=== PATIENT | female | born 1985 | race Caucasian/White ===

== ENCOUNTER 2016-11-26 15:59 | Emergency (ER) | payer OTHER ==
[~2016-11-26] VITALS: Ht 172.7 cm; Wt 113.4 kg
[~2016-11-26 15:59] MED LIST: A/B OTIC 54 MG/15 ML OT; ALPRAZOLAM1 M2 PO; KLONOPIN0.5 MG PO; LEVOTHYROXINE100 MC1 PO; METFORMIN HCL500 M4 PO; OMNICEF300 MG PO; PAMPRIN MAX PA1 EACH PO; PERCOCET 325 MG1 TA2 PO; VENLAFAXINE HC150 MG PO
[2016-11-26 16:26] VITALS: BP 137/86
--- NOTE | 2016-11-26 18:37 | ED PSYCHIATRIC COMPLAINT ---
History of Present Illness General Chief Complaint: General Adult Stated Complaint: OFF MEDS SINCE SAT, ANXIETY, FEELING DISORIENTED Source: patient, family, old records Exam Limitations: no limitations Vital Signs & Intake/Output Vital Signs & Intake/Output Vital Signs Date Time Temp Pulse Resp B/P Pulse O2 O2 Flow FiO2 Ox Delivery Rate 11/26 1626 97.7 81 18 137/86 99 Room Air Allergies Coded Allergies: codeine (Intermediate, RASH 03/08/16) Uncoded Allergies: SEASONAL (03/08/16) Reconcile Medications Alprazolam 1 MG TABLET 1 TAB PO DAILY PRN ANXIETY (Reported) Alprazolam (Xanax) 1 MG TABLET 1 TAB PO BID PRN ANXIETY Aspirin/Acetaminophen/Caffeine (Pamprin Max Pain Relief Caplet) 1 EACH TABLET 2 TAB PO PRN PAIN (Reported) Levothyroxine Sodium 200 MCG TABLET 1 TAB PO DAILY THYROID (Reported) Metformin HCl (Metformin HCl ER) 500 MG TAB.ER.24H 1 TAB PO DAILY PCOS ( Reported) Venlafaxine HCl (Venlafaxine HCl ER) 150 MG CAP.ER.24H 1 CAP PO DAILY MENTAL HEALTH (Reported) Triage Note: PRESENTS TO ED FOR EVALUATION OF INCREASE ANXIETY X 10 DAYS. REPORTS SUDDEN EPISODES OF CRYING AND UNABLE TO SLEEP. ALSO REPORTS DIZZINESS AND SHE WAS REFERED TO THE ED BY HER THERAPIST. Triage Nurses Notes Reviewed? yes Onset: Gradual Duration: week(s): (1), constant Timing: recent history Severity: mild, moderate Severity Numbers: 7 Associated Symptoms: anxiety, insomnia : No Patient currently breastfeeds: No HPI: 31-year-old female with history of anxiety for which she takes Xanax as needed , hypothyroid presents complaining of briskly worsening anxiety and insomnia for the past 1 week. The patient can't get in to see her psychiatrist until December and attempted calling her primary care physician over the weekend and today for refill of her Xanax without getting a call back. She reports to being under increased stress for the past several weeks getting progressively worse. 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 Her fianc is at bedside corroborating story. She denies any thoughts of wanting to harm herself or others she is never been hospitalized in inpatient setting due to anxiety depression. The patient is declining wishing to speak with crisis when offered today. She denies any other complaints. Her last dose of Xanax was 3 days ago. (RENAY KIDD) Past History Travel History Traveled to [place] past 21 day No Medical History Any Pertinent Medical History? see below for history Psychiatric: anxiety, depression Cancer(s): thyroid cancer Surgical History Surgical History: non-contributory Psychosocial History What is your primary language Cape Verdean Tobacco Use: Never used Family History Hx Contributory? No (RENAY KIDD) Review of Systems Review of Systems Constitutional: Reports: see HPI. All Other Systems: Reviewed and Negative Comments Review of systems: See HPI, All other systems negative. Constitutional, no chills no fever, no malaise HEENT: no sore throat no congestion, no ear pain Cardiovascular: No chest pain , no palpitation Skin, no rashes, no change in skin Respiratory: No dyspnea no cough no sputum GI: No nausea no vomiting, no diarrhea : No dysuria Muscle skeletal: No joint pain, no joint swelling, no back pain, no neck pain, Neurologic: No numbness , no headache Psych: anxiety Heme/endocrine: No bruising no bleeding no polyuria Immunology: No lymphadenopathy (RENAY KIDD) Physical Exam Physical Exam General Appearance: well developed/nourished, no apparent distress, alert, awake Neurological/Psychiatric: no motor/sensory deficits, awake, alert, normal mood/ affect, strategy intern II-XII nml as tested Comments: Well-developed well-nourished person in no acute distress HEENT: Normal EENT exam; PERRL, EOMI, no nystagmus. HEAD is atraumatic. moist mucous membranes. Neck: Supple,, normal range of motion Back: Nontender. Full range of motion Cardiovascular: Regular rate and rhythms no murmurs rubs Respiratory: . No respiratory distress. Patient speaking in full complete sentences. Breath sounds clear to auscultation bilaterally: NO W/R/R Abdomen: Soft, nontender Extremity: No edema, full range of motion of extremities Neuro: Alert oriented x3, motor sensory normal. There were no obvious focal neurologic abnormalities. Skin: No appreciable rash on exposed skin, skin is warm and dry. Psych: Mood and affect is normal, memory and judgment is normal. SAD PERSONS Done? patient not suicidal (RENAY KIDD) Progress Differential Diagnosis: anxiety, depression Plan of Care: Patient was explained the possibility and my recommendation was speaking with crisis which she is declining she is not homicidal she has a good support system at home lives with her fianc advised that she call her psychiatrist again tomorrow to see if she can be seen sooner as well as her primary care physician. Prescription present next was provided advised return anytime sooner for symptoms worsen despite taking these medications or she has any other concerns answered all of her questions they feel comfortable plan (RENAY KIDD) Departure Departure Time of Disposition: 1835 Disposition: HOME OR SELF CARE Condition: Stable Clinical Impression Primary Impression: Anxiety Referrals: BRYCE GASTELUM DO Additional Instructions: FOLLOW UP WITH PRIMARY CARE PHYSICIAN DR GASTELUM WELL YOUR THERAPIST THIS WEEK TO SEE IF YOU CAN BE SEEN SOONER. XANAX DIRECTED, DIRECTED, RETURN AT ANYTIME SOONER IF YOU HAVE WORSENIG OF YOUR SYMPTOMS DESPITE MEDICATION OR HAVE ANY OTHER CONCERNS. YOUR PRESCRIPTION WAS SENT TO [facility] Departure Forms: Customer Survey General Discharge Information Prescriptions: Current Visit Scripts Alprazolam (Xanax) 1 TAB PO BID PRN ANXIETY #10 TAB (RENAY KIDD) PA/UNDERWATER HUNTER TRAPPER Co-Sign Statement Statement: ED Attending supervision documentation- [] I saw and evaluated the patient. I have also reviewed all the pertinent lab results and diagnostic results. I agree with the findings and the plan of care as documented in the PA's/UNDERWATER HUNTER TRAPPER's documentation. [X] I have reviewed the ED Record and agree with the PA's/UNDERWATER HUNTER TRAPPER's documentation. [] Additions or exceptions (if any) to the PAs/UNDERWATER HUNTER TRAPPER's note and plan are summarized below: [] (SHIRA DAVIS,GEORGE)
[2016-11-26] MEDS ORDERED: XANAX1 M1 PO (18:38)
== END 2016-11-26 18:44 ==
LOC: ERH 15:59
DX: F41.9 Anxiety disorder, unspecified (principal)

== ENCOUNTER 2017-03-11 10:55 | Emergency (ER) | payer OTHER ==
[~2017-03-11] VITALS: Ht 172.7 cm; Wt 108.9 kg
[~2017-03-11 10:55] MED LIST changes: +XANAX1 M1 PO
--- NOTE | 2017-03-11 11:28 | ED INFLUENZA/URI COMPLAINT ---
History of Present Illness General Chief Complaint: Dyspnea (COPD, CHF, Other) Stated Complaint: DIFFICULTY BREATHING Source: patient, old records Exam Limitations: no limitations Vital Signs & Intake/Output Vital Signs & Intake/Output Vital Signs Date Time Temp Pulse Resp B/P B/P Pulse O2 O2 Flow FiO2 Mean Ox Delivery Rate 03/11 1212 97.8 83 18 125/63 100 Room Air 03/11 1156 Room Air 03/11 1103 97.8 65 18 116/78 98 Room Air Allergies Coded Allergies: codeine (Intermediate, RASH 03/08/16) Uncoded Allergies: SEASONAL (03/08/16) Reconcile Medications Albuterol Sulfate (Proair Hfa) 90 MCG HFA.AER.AD 2 PUF INH Q4-6 PRN PRN wheezing Clonazepam 1 MG TABLET 1 TAB PO DAILY PRN ANXIETY (Reported) Levothyroxine Sodium 100 MCG TABLET 1 TAB PO DAILY AC THYROID (Reported) Levothyroxine Sodium 88 MCG TABLET 1 TAB PO DAILY AC THYROID (Reported) Metformin HCl (Metformin HCl ER) 500 MG TAB.ER.24H 1 TAB PO DAILY PCOS ( Reported) Mometasone Furoate (Nasonex) 50 MCG SPRAY.PUMP 2 SPRAY NASB DAILY rhinitis Venlafaxine HCl (Venlafaxine HCl ER) 150 MG CAP.ER.24H 1 CAP PO DAILY MENTAL HEALTH (Reported) Triage Note: 31 Y/O FEMALE C/O URI SYMPTOMS X FEW DAYS. C/O COUGH WITH CLEAR PHLEGM AND NASAL CONGESTION. HAS BEEN TAKING NASAL SPRAY AND ALBUTEROL WITH SOME RELIEF. DRY COUGH NOTED. AFEBRILE. Triage Nurses Notes Reviewed? yes Onset: Gradual Duration: day(s): (3-4), constant Timing: recent history Severity: mild Severity Numbers: 5 Prior Episodes/Possible Cause: occassional episodes No Modifying Factors: none Associated Symptoms: cough, nasal congestion, nasal drainage : No Patient currently breastfeeds: No HPI: 31-year-old female with history of hypothyroid presents to the ER for evaluation complaining of a productive cough of clear sputum and nasal congestion rhinorrhea sinus pressure ear pain bilaterally for the past 4-5 days. She's been using Flonase and her friends pro-air inhaler with improvement. She denies fever or chills. No chest pain shortness of breath abdominal pain nausea vomiting or diarrhea. No recent travel or sick contacts otherwise. She has a history of celiac allergies and states this feels similar. She does not smoke (RENAY KIDD) Past History Travel History Traveled to [place] past 21 day No Medical History Any Pertinent Medical History? 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 No (RENAY KIDD) Review of Systems Review of Systems Constitutional: Reports: see HPI. All Other Systems: Reviewed and Negative Comments Review of systems: See HPI, All other systems negative. Constitutional, no chills no fever, no malaise HEENT: No visual changes no sore throat congestion, no ear pain Cardiovascular: No chest pain , no palpitation , no orthopnea Skin: no rashes, no change in skin Respiratory: No dyspnea cough sputum GI: No nausea no vomiting, no diarrhea, no bloating/constipation : No dysuria Muscle skeletal: No joint pain, no joint swelling, no back pain, no neck pain, Neurologic:, no headache Psych: No stress no depression,. Heme/endocrine: No bruising no bleeding Immunology: No lymphadenopathy (RENAY KIDD) Physical Exam Physical Exam General Appearance: well developed/nourished, no apparent distress, alert, awake Ears, Nose, Throat: moist mucous membrane, hearing grossly normal, Tympanic normal, pharynx normal, nasal congestion Comments: Well-developed well-nourished person in no acute distress Head/Face: Atraumatic, maxillary/frontal sinus tenderness, no facial swelling Eyes: PERRL, EOMI, no conjunctival injection. No nystagmus Ear:External auditory canal and Tympanic membranes clear, no erythema, no FB. Nose: atraumatic.Normal inspection: CONGESTION Throat: Moist mucous membranes.Pharynx normal. No pharyngeal erythema/exudate seen. No stridor/drooling or assymetry. No swelling or edema. Neck: Supple, no lymphadenopathy, FROM Back: Nontender, no CVA tenderness. Full range of motion Cardiovascular: Regular rate and rhythms no murmurs rubs or gallops, Respiratory: Chest nontender.There were no bony deformities, no asymmetry. No respiratory distress. Patient speaking in full complete sentences. Breath sounds clear to auscultation bilaterally: NO W/R/Rs. Extremity: No edema, full range of motion of extremities Neuro: Alert oriented x3, motor sensory normal. There were no obvious focal neurologic abnormalities. Skin: No appreciable rash on exposed skin, skin is warm and dry. Psych: Mood and affect is normal, memory and judgment is normal. Core Measures Severe Sepsis Present: No Septic Shock Present: No (RENAY KIDD) Progress Differential Diagnosis: influenza, pneumonia, pharyngitis, sinusitis, viral syndomre, allergic rhinitis Plan of Care: Orders Procedure Date/time Status AEROSOL (GEN) 03/11 1200 Complete DuoNeb ordered I discussed with the patient at length all of their results. I had an extensive conversation regarding need for close follow up with their primary care physician this week as well as return precautions. I answered all of their questions, they feel comfortable with the plan and follow-up care. I discussed the medications that they will receive with the patient. I gave them signs and symptoms that could indicate an adverse reaction. I have advised them to limit their activities until they can see how they respond to the medication. (RENAY KIDD) Initial ED EKG: none (RENAY KIDD) Departure Departure Time of Disposition: 1205 Disposition: HOME OR SELF CARE Condition: Stable Clinical Impression Primary Impression: Allergic rhinitis Referrals: LIYAH DAVIS,CADEN Stover (PCP/Family) Additional Instructions: follow up with your pmd this week, nasonex nasal spray, proair inhaler as directed. over the counter isaiah or claritin. return to the ER with any concerns [facility] Departure Forms: Customer Survey General Discharge Information Prescriptions: Current Visit Scripts Mometasone Furoate (Nasonex) 2 SPRAY NASB DAILY #1 INHAL Albuterol Sulfate (Proair Hfa) 2 PUF INH Q4-6 PRN PRN wheezing #1 INHAL (RENAY KIDD) PA/FIELD CANE SCALE CLERK Co-Sign Statement Statement: ED Attending supervision documentation- [] I saw and evaluated the patient. I have also reviewed all the pertinent lab results and diagnostic results. I agree with the findings and the plan of care as documented in the PA's/FIELD CANE SCALE CLERK's documentation. [X] I have reviewed the ED Record and agree with the PA's/FIELD CANE SCALE CLERK's documentation. [] Additions or exceptions (if any) to the PAs/FIELD CANE SCALE CLERK's note and plan are summarized below: [] (FOREST SAAVEDRA DO)
[2017-03-11] MEDS ORDERED: LEVOTHYROXINE88 MCG PO (11:46)
[2017-03-11] MEDS ORDERED: CLONAZEPAM1 M2 PO (11:47)
[2017-03-11] MEDS ORDERED: NASONEX17 GM NASB (12:06)
[2017-03-11] MEDS ORDERED: PROAIR HFA8.5 GM INH (12:06)
[2017-03-11 12:12] VITALS: BP 125/63
== END 2017-03-11 12:17 ==
LOC: ERH 10:55
DX: J30.9 Allergic rhinitis, unspecified (principal)
CPT/HCPCS: 1263